=== PATIENT | male | born 1985 ===

== ENCOUNTER 2022-12-29 05:45 | Day surgery (SDC) | payer OTHER ==
[~2022-12-29] VITALS: Ht 177.8 cm; Wt 88.9 kg
[~2022-12-29 05:45] MED LIST: CRESTOR5 MG PO; FARXIGA10 MG PO; TELMISARTAN40 MG PO; TOPROL XL25 M1 PO
== END 2022-12-29 11:25 | disposition home or self-care (01) ==
LOC: CIR.AMB 05:45
PROVIDERS: ATTEND Urology
DX: N47.1 Phimosis (principal); Z20.822 Contact with and (suspected) exposure to COVID-19; E78.5 Hyperlipidemia, unspecified; I10 Essential (primary) hypertension; N28.9 Disorder of kidney and ureter, unspecified